=== PATIENT | male | born 1975 | race Caucasian/White ===

== ENCOUNTER 2021-03-19 11:07 | Emergency (ER) | payer OTHER ==
[2021-03-19 11:13] VITALS: BP 131/78; PULSE 102; BMI 28.8
[2021-03-19] MEDS ORDERED: IBUPROFEN 600 MG TABLET (FP) PO ONE ×2 (12:15→12:23)
== END 2021-03-19 14:30 | disposition home or self-care (01) ==
LOC: JERFT 11:07
DX: M79.661 Pain in right lower leg (principal)
CPT/HCPCS: 93971-TC; 99284-25